=== PATIENT | male | born 1995 | race Caucasian/White ===

== ENCOUNTER 2023-11-25 15:11 | Emergency (ER) | payer BC ==
[~2023-11-25 15:11] MED LIST: Azithromycin 250 MG TAB PO ONE; Ketorolac 30 MG/ML VIAL IV ONE; NS 1,000 ML IV ONE; cefTRIAXone 1 G in Water For Injection,Sterile 10 ML IV ONE
[2024-01-14 17:14] LABS: URINE APPEARANCE CLEAR (CLEAR); URINE COLOR YELLOW (YELLOW); URINE GLUCOSE NEGATIVE (NEGATIVE); URINE PROTEIN(semi-quant) 1+ (NEGATIVE)
[2024-01-14 17:15] LABS: URINE BILIRUBIN NEGATIVE (NEGATIVE); URINE BLOOD TRACE-INTACT (NEGATIVE); URINE KETONE TRACE (NEGATIVE); URINE NITRATE NEGATIVE (NEGATIVE)
[2024-01-14 17:16] LABS: URINE LEUKOCYTE ESTERASE NEGATIVE (NEGATIVE); URINE WBC 0-1 /hpf (0-3)
[2024-01-14 17:35] LABS: BASO # 0.03 K/mm3 (0.02-0.10); EOS # 0.02 K/mm3 (0.04-0.40); EOS % 0.2 % (0.0-4.0); HEMATOCRIT 41.6 % (42.0-52.0); HEMOGLOBIN 14.2 g/dL (13.5-18.0); LYMPH# 1.12 K/mm3 (1.50-4.00); MEAN CELL VOLUME 87 fl (78-100); MEAN CORPUSCULAR HEMOGLOBIN 30 pg (27-31); MEAN CORPUSCULAR HGB CONC 34 g/dL (33-37); MEAN PLATELET VOLUME 10.1 fl (7.4-10.4); MONO # 0.85 K/mm3 (0.20-0.80); NEU # 8.53 K/mm3 (1.40-6.50); PLATELET COUNT 227 K/mm3 (130-400); RED BLOOD COUNT 4.77 M/mm3 (4.20-5.60); RED CELL DISTRIBUTION WIDTH 11.3 % (11.5-14.5); WHITE BLOOD COUNT 10.6 K/mm3 (4.8-10.8)
[2024-01-14 17:38] LABS: ALBUMIN 4.3 g/dL (3.5-5.0); CALCIUM 9.9 mg/dL (8.3-10.5); TOTAL BILIRUBIN 1.5 mg/dL (0.2-1.2); TOTAL PROTEIN 7.8 g/dL (6.4-8.3)
== END 2023-11-25 18:01 | disposition home or self-care (01) ==
LOC: ED 15:11
PROVIDERS: Family Medicine
DX: A41.9 Sepsis, unspecified organism (principal); J18.9 Pneumonia, unspecified organism
CPT/HCPCS: J0696; J1885; J7030